=== PATIENT | female | born 1950 | race Caucasian/White ===

== ENCOUNTER 2021-11-03 19:50 | Emergency (ER) | payer OTHER ==
[~2021-11-03] VITALS: Ht 162.6 cm; Wt 99.8 kg
[2021-11-03 20:10] VITALS: BP_SYST 136
--- NOTE | 2021-11-03 20:10 | NUR ---
Patient to ER bed 4 for evaluation. Side rails up.
--- NOTE | 2021-11-03 20:16 | NUR ---
71 YR OLD AOX4 CITIZEN OF [place] SPEAKING FEMALE WITH COMPLAINT OF GROUND LEVEL FALL ABOUT 6 HOPURS AGO WITH LOW BACK PAIN. PT REPORTS BEING UNABLE TO WALK DUE TO PAIN. AT THE BEDSIDE, PT PENDING XRAY
[2021-11-03] MEDS ORDERED: HYDROcodone/ACETAMIN 5-325 MG TAB (NORCO/ VICODIN) PO ONE (21:00)
[2021-11-03] MEDS ORDERED: ACET-2634 PO (21:13)
[2021-11-03] MEDS ORDERED: TRAM50TA2 PO (21:13)
--- NOTE | 2021-11-03 21:36 | NUR ---
Patient given written and verbal discharge instructions and verbalizes understanding. ER MD discussed with patient the results and treatment provided. Patient in stable condition. ID arm band removed. IV catheter removed intact and dressing applied, no active bleeding. Rx of toradol and tylenol 3 given. Patient educated on pain management and to follow up with PMD. PT discharged in stable condition via wheelchair accomaonied by luis miguel and tech
== END 2021-11-03 21:51 | disposition home or self-care (01) ==
LOC: SED 19:50
DX: S29.012A Strain of muscle and tendon of back wall of thorax, initial encounter (principal); M54.6 Pain in thoracic spine; W01.0XXA Fall on same level from slipping, tripping and stumbling without subsequent striking against object, initial encounter; Y93.89 Activity, other specified; Y92.832 Beach as the place of occurrence of the external cause; Y99.8 Other external cause status
CPT/HCPCS: 71045; 72080-TC; 99284